=== PATIENT | male | born 1960 | race Caucasian/White ===

== ENCOUNTER → 2017-07-22 | Outpatient (CLI) | payer OTHER ==
[~2017-07-22] MED LIST: AUGMENTIN 875 M1 TAB PO; CIPRODEX 0.3%-7.5 ML OT; CLARITIN10 MG PO; TOBRADEX 0.1%-0.5 ML OPH
[2017-07-22 15:11] LABS: BASO % 0.5 % (0.0-1.0); EOS % 0.4 % (1.0-4.0); HEMATOCRIT 41.9 % (42.0-52.0); HEMOGLOBIN 14.2 g/dl (14.0-18.0); LYMPH # 1.3 10*3/uL (1.3-4.4); LYMPH % 15.5 % (27.0-41.0); MEAN CELL VOLUME 90.3 fl (80.0-94.0); MEAN CORPUSCULAR HGB 30.6 pg (27.0-31.0); MEAN CORPUSCULAR HGB CONC 33.9 g/dl (33.0-37.0); MEAN PLATELET VOLUME 8.5 fl (9.6-12.3); MONO # 0.7 10*3/uL (0.1-1.0); MONO % 8.9 % (3.0-9.0); NEUT # 6.1 10*3/uL (2.3-7.9); NEUT % 74.5 % (47.0-73.0); PLATELET COUNT AUTOMATED 321 10*3/uL (130-400); RED BLOOD COUNT 4.64 10*6/uL (4.50-5.90); RED CELL DISTRI WIDTH 13.9 % (0-14.5); WHITE BLOOD COUNT 8.1 10*3/uL (4.8-10.8)
[2017-07-22 15:42] LABS: VITAMIN D, 25-HYDROXY 11.7 ng/mL (30-100)
[2017-07-22 15:43] LABS: ALBUMIN 3.9 gm/dl (3.1-4.5); ALKALINE PHOSPHATASE 105 U/L (45-117); BUN 11 mg/dl (7-24); CHLORIDE 94 mmol/L (98-107); CREATININE 0.87 mg/dL (0.70-1.30); POTASSIUM 4.1 mmol/L (3.5-5.1); SGOT/AST 39 IU/L (3-35); SGPT/ALT 45 U/L (12-78); SODIUM 131 mmol/L (136-145); TOTAL PROTEIN 8.4 gm/dL (6.4-8.2)
== END | disposition home or self-care (01) ==
LOC: LAB 01:58 → RESCLI 01:58
PROVIDERS: Emergency Medicine
DX: J44.9 Chronic obstructive pulmonary disease, unspecified (principal); R13.11 Dysphagia, oral phase; F17.210 Nicotine dependence, cigarettes, uncomplicated; R49.0 Dysphonia; E55.9 Vitamin D deficiency, unspecified

== ENCOUNTER → 2017-07-29 | Outpatient (CLI) | payer OTHER ==
--- NOTE | ~2017-07-29 | EKG ---
[place], [place] ELECTROCARDIOGRAM REPORT NAME: IRIS MARLOW UNIT #: [id number] ROOM: DOCTOR: HARISH LUZ MD BIRTHDATE: [birth year] DOS: 07/29/2017 TIME: 14:41:54. RATE AND RHYTHM: Sinus tachycardia at 105 beats per minute. IA interval 177 milliseconds, QRS duration 70 milliseconds, corrected QT interval 427 milliseconds, QRS axis 81. IMPRESSION: 1. Sinus tachycardia. 2. Probable left atrial enlargement. HARISH LUZ MD CM:EKGRPT:ELECTROCARDIOGRAM REPORT [id number] HARISH LUZ MD
== END | disposition home or self-care (01) ==
LOC: RESCLI 02:06
DX: J41.1 Mucopurulent chronic bronchitis (principal); J06.9 Acute upper respiratory infection, unspecified; R63.6 Underweight; R13.11 Dysphagia, oral phase; E55.9 Vitamin D deficiency, unspecified; R00.0 Tachycardia, unspecified; Z72.0 Tobacco use; Z71.6 Tobacco abuse counseling

== ENCOUNTER 2018-11-25 10:57 | Emergency (ER) | payer SELFPAY ==
[~2018-11-25] VITALS: Ht 175.2 cm; Wt 45.4 kg
[~2018-11-25 10:57] MED LIST changes: +CLARITIN-D 24 H1 TAB PO; +DULERA 100 MCG8.8 GM PO; +MULTIVITAMINS1 EAC6 PO; +PROTONIX TR40 M1 PO; +PROVENTIL HFA6.7 GM PO
[2018-11-25 11:39] LABS: BASO # 0.1 10*3/uL (0.0-0.1); BASO % 0.4 % (0.0-1.0); EOS # 0.1 10*3/uL (0.0-0.4); EOS % 0.5 % (1.0-4.0); HEMATOCRIT 39.2 % (42.0-52.0); HEMOGLOBIN 13.7 g/dl (14.0-18.0); LYMPH # 1.5 10*3/uL (1.3-4.4); LYMPH % 11.6 % (27.0-41.0); MEAN CELL VOLUME 91.4 fl (80.0-94.0); MEAN CORPUSCULAR HGB 31.9 pg (27.0-31.0); MEAN CORPUSCULAR HGB CONC 34.9 g/dl (33.0-37.0); MEAN PLATELET VOLUME 8.4 fl (9.6-12.3); MONO # 0.7 10*3/uL (0.1-1.0); MONO % 5.1 % (3.0-9.0); NEUT # 10.9 10*3/uL (2.3-7.9); NEUT % 82.1 % (47.0-73.0); PLATELET COUNT AUTOMATED 365 10*3/uL (130-400); RED BLOOD COUNT 4.29 10*6/uL (4.50-5.90); RED CELL DISTRI WIDTH 13.6 % (0-14.5); WHITE BLOOD COUNT 13.2 10*3/uL (4.8-10.8)
[2018-11-25 11:49] LABS: ACT PARTIAL THROMBO TIME 26.5 SECONDS (20.0-32.1); INTERNATIONAL NORM RATIO 0.9 (2.0-3.5)
[2018-11-25 11:52] LABS: ALBUMIN 3.4 gm/dl (3.1-4.5); ALKALINE PHOSPHATASE 147 U/L (45-117); BUN 4 mg/dl (7-24); CHLORIDE 93 mmol/L (98-107); CREATININE 0.63 mg/dL (0.70-1.30); POTASSIUM 3.7 mmol/L (3.5-5.1); SGOT/AST 55 IU/L (3-35); SGPT/ALT 35 U/L (12-78); SODIUM 129 mmol/L (136-145); TOTAL PROTEIN 8.1 gm/dL (6.4-8.2)
== END 2018-11-25 15:30 | disposition short-term general hospital (02) ==
LOC: ED 10:57
PROVIDERS: Emergency Medicine
DX: R22.1 Localized swelling, mass and lump, neck (principal); R06.02 Shortness of breath; R13.10 Dysphagia, unspecified; F17.200 Nicotine dependence, unspecified, uncomplicated; Z79.899 Other long term (current) drug therapy

== ENCOUNTER → 2019-01-06 | Outpatient (CLI) | payer OTHER ==
--- NOTE | ~2019-01-06 | SHMRC ---
[place], [place] THERAPY [facility] NAME: IRIS MARLOW UNIT #: [id number] ROOM: DOCTOR: DANNIE MCMANUS DO Patient Name: IRIS MARLOW. Date: 01/06/2019 Patient Number: [id number] Treating Therapist:Catherine Samuels Patient Date of : 1960 Location: [facility] Patient Reason for Visit RAD/SH Electronic Signature(s) Signed By: Date: Catherine Samuels 01/06/2019 14:55:14 Entered By: Catherine Samuels on 01/06/2019 14:53:53 Arrival Information Patient Name: IRIS MARLOW. Date: 01/06/2019 Patient Number: [id number] Treating Therapist:Catherine Smauels Patient Date of : 1960 Location: [facility] Patient Subjective Initial evaluation completed to generate medical record. Refer to report in [facility] for further information. Electronic Signature(s) Signed By: Date: Catherine Samuels 01/06/2019 14:55:14 Entered By: Catherine Samuels on 01/06/2019 14:53:53 Medical History Patient Name: IRIS MARLOW. Date: 01/06/2019 Patient Number: [id number] Treating Therapist:Catherine Samuels Patient Date of : 1960 Location: [facility] Patient Past Medical History Electronic Signature(s) Signed By: Date: Catherine Samuels 01/06/2019 14:55:14 Entered By: Catherine Samuels on 01/06/2019 14:53:53 Allergy List Patient Name: IRIS MARLOW. Date: 01/06/2019 Patient Number: [id number] Treating Therapist:Catherine Samuels Patient Date of : 1960 Location: [facility] Patient Electronic Signature(s) Signed By: Date: Catherine Samuels 01/06/2019 14:55:14 Entered By: Catherine Samuels on 01/06/2019 14:53:53 Arrival Information Patient Name: IRIS MARLOW. Date: 01/06/2019 Patient Number: [id number] Treating Therapist:Catherine Samuels Patient Date of : 1960 Location: [facility] Patient Subjective Initial evaluation completed to generate medical record. Refer to report in [facility] for further information. Electronic Signature(s) [place], [place] TH[facility]APY [facility] NAME: IRIS MARLOW UNIT #: [id number] ROOM: DOCTOR: DANNIE MCMANUS DO Signed By: Date: Catherine Samuels 01/06/2019 14:55:14 Entered By: Catherine Samuels on 01/06/2019 14:53:53 [facility] Patient Name: IRIS MARLOW. Date: 01/06/2019 Patient Number: [id number] Treating Therapist:Catherine Samuels Patient Date of : 1960 Location: [facility] Patient Visit Start Time 1:00 PM Visit End Time 2:00 PM Visit Duration 60 minutes Procedures CPT Barry Code Intervention Modifier Minutes Units 58893 [id number] MOTION FLUOROSCOPY/SWALLOW 60 1 Total Timed Minutes 0 Total Treatment Minutes 60 Electronic Signature(s) Signed By: Date: Catherine Samuels 01/06/2019 14:55:14 Entered By: Catherine Samuels on 01/06/2019 14:54:47 Chief Complaint Patient Name: IRIS MARLOW. Date: 01/06/2019 Patient Number: [id number] Treating Therapist:Catherine Samuels Patient Date of : 1960 Location: [facility] Patient Reason for Visit RAD/SH Electronic Signature(s) Signed By: Date: Catherine Samuels 01/06/2019 14:55:14 Entered By: Catherine Samuels on 01/06/2019 14:53:53 Medical History Patient Name: ELE IRIS William. Date: 01/06/2019 Patient Number: [id number] Treating Therapist:Catherine Samuels Patient Date of : 1960 Location: [facility] Patient Past Medical History Electronic Signature(s) Signed By: Date: Catherine Samuels 01/06/2019 14:55:14 Entered By: Catherine Samuels on 01/06/2019 14:53:53 Allergy List Patient Name: IRIS MARLOW Date: 01/06/2019 Patient Number: [id number] Treating Therapist:Catherine Samuels Patient Date of : 1960 [facility] Patient Electronic Signature(s) Signed By: Date: [place], [place] TH[facility]APY [facility] NAME: IRIS MARLOW UNIT #: [id number] ROOM: DOCTOR: DANNIE MCMANUS DO, Maryann 01/06/2019 14:55:14 Entered By: Catherine Samuels on 01/06/2019 14:53:53 CM:[facility] 1457 1457 [facility]
--- NOTE | ~2019-01-06 | SLPPOC ---
[place], [place] CORRECTIONAL PROGRAM SPECIALIST PLAN OF CARE NAME: IRIS MARLOW UNIT #: [id number] ROOM: DOCTOR: DANNIE MCMANUS DO Patient Name: IRIS MARLOW Date: 01/06/2019 Patient Date of : 1960 [facility] Start of Care: 01/06/2019 Reason for Treatment: RAD/SH Visits since start of care: 1 Primary Care Physician: YADIEL MIRELES D.O Referring Physician: DANNIE MCMANUS DO Speech-Language Pathology Initial Evaluation Plan of Care Reason for Visit RAD/SH Arrival Information Subjective Initial evaluation completed to generate medical record. [facility] for further information. Medical History Past Medical History Therapist Signature(s) Signed By: Catherine Samuels [facility] License #: [id number] 01/06/2019, 2:55 PM Referring Physician Signature I certify the need for these services furnished under this plan of treatment and while under my care. DANNIE MCMANUS DO Date/Time CM:SLPPOC 1457 1457 [facility]
--- NOTE | ~2019-01-06 | PROC NOTE ---
[place], [place] PROCEDURE NOTE NAME: IRIS MARLOW UNIT #: [id number] ROOM: DOCTOR: BREEZY BUCIO BIRTHDATE: [birth year] DOS: 01/06/2019 MODIFIED BARIUM SWALLOW ORDERING PHYSICIAN: Dr. Gordon. RADIOLOGIST: Dr. Magdaleno. BACKGROUND INFORMATION: The patient is a 58-year-old male who was seen for modified barium swallow. This test was ordered to view the anatomy and physiology of the swallow and determine candidacy for oral feeding. Medical history provided from custodial includes oral and pharyngeal cancer. Further information regarding the cancer and any treatment is not available at this time. History also includes oropharyngeal dysphagia, tracheostomy, DM, ethanol abuse, pneumonia and GERD. The patient was wearing a cuffless trach tube. He reported a need for suctioning 1-2 times daily and stated that he mostly is able to cough out secretions. The patient is n.p.o. and fed by G-tube. He reported that he has not undergone any type of surgery, chemotherapy or radiation, but stated that he thought he may be starting chemotherapy as soon. As previously mentioned, limited information is available regarding this. Patient stated that he underwent two prior modified barium swallow studies in [place] with both studies revealing a recommendation for n.p.o. The patient was alert and able to write to convey his wants and needs. Congested respirations were displayed. Oral peripheral examination revealed edentulous status. Labial and buccal skills were within functional limits in terms of strength, range of motion, and coordination. Lingual range of motion was noted to be poor. Strengths was mild to moderately reduced. The patient's volitional swallow was delayed. Volitional cough was weak. METHODS AND MATERIALS USED FOR THE EXAM: The patient was positioned in the lateral plane and the exam was viewed under fluoroscopy. The patient was presented with a variety of consistencies to assess swallowing skills including applesauce mixed with barium presented in 1/4 and 1/2 teaspoon amounts and thin liquid barium taken in single sip size amount by cup. ORAL PHASE: The patient achieved adequate labial seal around cup and spoon with no anterior loss. Bolus formation was mildly impaired. Oral transit was moderately impaired across consistencies. The patient achieved adequate tongue to palate contact, tongue retraction was adequate. Velar functioning was within normal limits. PHARYNGEAL PHASE: Epiglottic function was adequate as no penetration or aspiration occurred with any consistency given. Following the swallow, coating throughout the pharynx was observed as well as residuals in the piriforms; with a secondary swallow, he was able to clear the residue. ESOPHAGEAL PHASE: This phase of the swallow was not formally assessed during [place], [place] PROCEDURE NOTE NAME: IRIS MARLOW UNIT #: [id number] ROOM: DOCTOR: BREEZY BUCIO BIRTHDATE: [birth year] this exam. IMPRESSIONS AND RECOMMENDATIONS: Based upon assessment results, this 58-year-old patient presents with a moderate oropharyngeal dysphagia characterized by reduced bolus formation and transit, poor laryngeal elevation and coating of barium throughout the pharynx and piriforms, which is slowly cleared with re-swallow. There was no penetration or aspiration occurring with any consistency. It is recommended that the patient begin oral feeding was pleasure foods consisting of pureed items and thin liquids. Recommend the patient eat slowly and in an upright position with small amounts and use of double swallows. Recommend continued therapy at the custodial, focusing on use of strengthening exercises, education and adherence to safe swallow precautions. Results and recommendations were shared with the patient and he verbalized understanding. A written copy was also provided for education of custodial staff. Thank you very much for this referral. Should you have any questions regarding this patient, please contact the speech pathologist at [phone]. BREEZY BUCIO CM:PROCNOTE:PROCEDURE NOTE 1510 [id number] BREEZY BUCIO
--- NOTE | ~2019-01-06 | SLPIE ---
[place], [place] SAFETY PERSON INITIAL EVALUATION NAME: IRIS MARLOW UNIT #: [id number] ROOM: DOCTOR: DANNIE MCMANUS DO Patient Name: IRIS MARLOW Date: 01/06/2019 Patient Date of : 1960 [facility] Start of Care: 01/06/2019 Reason for Treatment: RAD/SH Primary Care Physician: YADIEL MIRELES D.O Referring Physician: DANNIE MCMANUS DO Speech-Language Pathology Initial Evaluation Reason for Visit RAD/ Arrival Information Subjective Initial evaluation completed to generate medical record. Refer to report in [facility] for further information. Medical History Past Medical History [facility] Visit Start Time 1:00 PM Visit End Time 2:00 PM Visit Duration 60 minutes Procedures CPT Melvin Code Intervention Modifier Minutes Units [id number] MOTION FLUOROSCOPY/SWALLOW 60 1 61553 Total Timed Minutes 0 Total Treatment Minutes 60 Therapist Signature(s) Signed By: Catherine Samuels [facility] License #: [id number] 01/06/2019, 2:55 PM CM:[facility] 1457 1457 [facility]
--- NOTE | 2019-01-06 13:48 | NUR ---
SPEECH PATHOLOGY Outpatient modified barium swallow completed as per orders to determine candidacy for oral feeding. Medical history includes oral and pharyngeal CA, oropharyngeal dysphagia, tracheostomy, DM, ETOH abuse, pneumonia, GERD. Patient is NPO and G-tube fed. He reported that he underwent two prior MBS studies in [place]. Patient displayed a moderate oropharyngeal dysphagia characterized by impaired bolus formation, transfer, poor laryngeal elevation, coating throughout pharynx and pyriforms which slowly cleared with reswallow. No penetration or aspiration occurred however his status places him at risk. Recommend patient begin pleasure feeding with puree and thin liquid with upright positioning, small amounts, and double swallows. Continued therapy at [facility] is recommended for exercises, education and adherence to precautions. Results and karma. were shared with patient and written copy was provided for [facility]. Dictated report to follow. Thank you for this referral. BREEZY BUCIO MSCCC-DISTANCE LEARNING COORDINATOR
== END | disposition home or self-care (01) ==
LOC: RAD/SH 12:58
DX: R13.12 Dysphagia, oropharyngeal phase (principal); C09.0 Malignant neoplasm of tonsillar fossa; F10.10 Alcohol abuse, uncomplicated; E11.9 Type 2 diabetes mellitus without complications; J45.909 Unspecified asthma, uncomplicated; E83.52 Hypercalcemia; R91.8 Other nonspecific abnormal finding of lung field

== ENCOUNTER → 2019-02-03 | Outpatient (CLI) | payer OTHER | END | disposition home or self-care (01) | LOC: NM 02-01 10:00 | DX: C10.8 Malignant neoplasm of overlapping sites of oropharynx (principal) ==

== ENCOUNTER → 2019-05-03 | Outpatient (CLI) | payer OTHER ==
--- NOTE | 2019-05-03 15:25 | NUR ---
SPEECH PATHOLOGY Outpatient MBS completed as per orders to determine safety with present diet. Medical history includes oropharyngeal cancer, tracheostomy, dysphagia, pneumonia, GERD, ETOH abuse. Patient has a g-tube for feeding but also receives puree and thin liquid as pleasure food. He reported that recently he has been coughing consistently when eating. Patient has been undergoing chemotherapy. He wears a cuffless trach. He cannot communicate verbally and is able to write to convey wants and needs. He was alert and cooperative, able to follow all commands. Oral exam revealed edentulous status. Limited jaw movement was displayed when attempting to open his mouth. Buccal and lingual ROM were poor. Labial skills were WFL in terms of strength, ROM and coordination. He was not able to volitionally swallow and volitional cough was weak and unproductive. He was assessed with puree and nectar liquid with results revealing severe oropharyngeal dysphagia characterized by poor bolus formation and transit, impaired tongue to posterior pharyngeal wall contact resulting in pooling in the valleculae, significant delay of swallow with bolus movement primarily due to gravity and silent aspiration with thick liquid due to reduced laryngeal elevation and epiglottic function. Recommend NPO and G-tube as primary means of nutrition. Recommend follow up therapy focusing on exercises to improve oral ROM and pharyngeal strength to work toward improving ability to tolerate oral feeding. Results and karma. were shared with patient and a written copy was provided for education of intermediate staff. Dictated report to follow. Thank you for this referral. BREEZY BUCIO MSCCC-MARKETING WRITER
== END | disposition home or self-care (01) ==
LOC: RAD/SH 13:24
DX: R13.19 Other dysphagia (principal)

== ENCOUNTER 2019-07-31 03:43 | Emergency (ER) | payer OTHER ==
[~2019-07-31] VITALS: Wt 49.3 kg
[2019-07-31 04:47] LABS: BASO % 0.1 % (0.0-1.0); EOS % 0.2 % (1.0-4.0); HEMATOCRIT 21.9 % (42.0-52.0); LYMPH # 0.8 10*3/uL (1.3-4.4); MEAN CELL VOLUME 104.8 fl (80.0-94.0); MEAN CORPUSCULAR HGB 34.4 pg (27.0-31.0); MEAN CORPUSCULAR HGB CONC 32.9 g/dl (33.0-37.0); MEAN PLATELET VOLUME 10.2 fl (9.6-12.3); MONO # 0.7 10*3/uL (0.1-1.0); MONO % 8.3 % (3.0-9.0); NEUT # 6.8 10*3/uL (2.3-7.9); NEUT % 80.9 % (47.0-73.0); PLATELET COUNT AUTOMATED 142 10*3/uL (130-400); RED BLOOD COUNT 2.09 10*6/uL (4.50-5.90); RED CELL DISTRI WIDTH 18.2 % (0-14.5); WHITE BLOOD COUNT 8.4 10*3/uL (4.8-10.8)
[2019-07-31 05:04] LABS: ACT PARTIAL THROMBO TIME 28.5 SECONDS (20.0-32.1); INTERNATIONAL NORM RATIO 1.1 (2.0-3.5)
[2019-07-31 07:05] LABS: HEMATOCRIT 20.4 % (42.0-52.0)
== END 2019-07-31 10:02 | disposition short-term general hospital (02) ==
LOC: ED 03:43
PROVIDERS: Emergency Medicine Emergency Medical Services
DX: C14.0 Malignant neoplasm of pharynx, unspecified (principal); R22.1 Localized swelling, mass and lump, neck; R04.0 Epistaxis; J44.9 Chronic obstructive pulmonary disease, unspecified; K21.9 Gastro-esophageal reflux disease without esophagitis; E11.9 Type 2 diabetes mellitus without complications; Z95.828 Presence of other vascular implants and grafts; Z79.899 Other long term (current) drug therapy; Z85.819 Personal history of malignant neoplasm of unspecified site of lip, oral cavity, and pharynx; Z85.118 Personal history of other malignant neoplasm of bronchus and lung; Z87.891 Personal history of nicotine dependence

== ENCOUNTER 2019-08-19 17:36 | Emergency (ER) | payer OTHER ==
[~2019-08-19] VITALS: Ht 175.2 cm; Wt 45.4 kg
[2019-08-19 18:04] LABS: BASO % 0.3 % (0.0-1.0); EOS # 0.1 10*3/uL (0.0-0.4); EOS % 0.7 % (1.0-4.0); HEMATOCRIT 30.1 % (42.0-52.0); LYMPH # 0.8 10*3/uL (1.3-4.4); MEAN CELL VOLUME 99.3 fl (80.0-94.0); MEAN CORPUSCULAR HGB 31.4 pg (27.0-31.0); MEAN CORPUSCULAR HGB CONC 31.6 g/dl (33.0-37.0); MEAN PLATELET VOLUME 8.8 fl (9.6-12.3); MONO # 0.8 10*3/uL (0.1-1.0); MONO % 9.1 % (3.0-9.0); NEUT # 7.4 10*3/uL (2.3-7.9); NEUT % 80.6 % (47.0-73.0); PLATELET COUNT AUTOMATED 334 10*3/uL (130-400); RED BLOOD COUNT 3.03 10*6/uL (4.50-5.90); RED CELL DISTRI WIDTH 16.8 % (0-14.5); WHITE BLOOD COUNT 9.1 10*3/uL (4.8-10.8)
[2019-08-19 18:17] LABS: ACT PARTIAL THROMBO TIME 29.3 SECONDS (20.0-32.1); INTERNATIONAL NORM RATIO 1.1 (2.0-3.5)
[2019-08-19 18:19] LABS: ALBUMIN 2.8 gm/dl (3.1-4.5); ALKALINE PHOSPHATASE 104 U/L (45-117); BUN 13 mg/dl (7-24); CHLORIDE 97 mmol/L (98-107); CREATININE 0.63 mg/dL (0.70-1.30); LIPASE 94 U/L (73-393); POTASSIUM 3.7 mmol/L (3.5-5.1); SGOT/AST 18 IU/L (3-35); SGPT/ALT 22 U/L (12-78); SODIUM 134 mmol/L (136-145); TOTAL PROTEIN 8.6 gm/dL (6.4-8.2)
== END 2019-08-19 21:40 ==
LOC: ED 17:36
PROVIDERS: Nurse Practitioner Family
DX: L98.8 Other specified disorders of the skin and subcutaneous tissue (principal); J44.9 Chronic obstructive pulmonary disease, unspecified; J45.909 Unspecified asthma, uncomplicated; K21.9 Gastro-esophageal reflux disease without esophagitis; E11.9 Type 2 diabetes mellitus without complications; Z79.899 Other long term (current) drug therapy

== ENCOUNTER → 2019-09-30 | Outpatient (CLI) | payer OTHER ==
--- NOTE | 2019-09-30 10:46 | NUR ---
SPEECH PATHOLOGY Outpatient MBS completed as per orders to determine cadidacy for return to oral feeding. Medical hisotry includes oral and pharyngeal CA, oropharyngeal dysphagia, tracheostomy, DM, ETOH abuse, pneumonia, GERD. Patient is NPO and G-tube fed. He has undergone two previous MBS studies at this facility. He wears a cuffless trach. He cannot communicate verbally but can write to express his wants and needs and can mouth some words and indicate y/n. He was alert and cooperative and able to follow all verbal commands. Oral exam revealed edentulous status. Limited ability to open his mouth. Buccal and lingual ROM were poor, and labial skills were WFL. He attempted volitional swallow, however, he was not able to do so. Volitional cough weak and unproductive. He was assessed with pureed applesauce mixed with barium revealing severe oropharyngeal dysphagia characterized by poor bolus formation and transit, no tongue to posterior pharyngeal wall contact, and pooling in valleculae and pyriform sinuses. Bolus transit mostly due to gravity. With cues to swallow multiple times he was able to swallow two small piecemeal amounts of puree which had pooled in pyriforms. Bolus remained unformed as material pooled in pharynx with little to no deglutition into esophagus. No aspiration noted during this trial. Evaluation discontinued after one trial of puree due to concerns of safety with liquids as there was very little muscular movement during attempted swallows, including no laryngeal elevation, no tongue to pharyngeal wall contact, and no pharyngeal contraction visible. Recommending NPO status and G-tube as primary means of nutrition. Patient may only have small sips of water by mouth in conjunction with intensive oral hygiene regimen to reduce risk of aspiration pneumonia or other acute respiratory infection. Recommend follow up therapy at [place] focusing on exercises and Vital Stim if possible to work toward ability to return to pureed and liquid pleasure feeds. Results and karma. shated with patient and given written copy for care home staff. Dictated report to follow. Thank you for this referral. Leon Cabrera MA [facility]-NAILING MACHINE OPERATOR
== END | disposition home or self-care (01) ==
LOC: RAD/SH 09-23 08:00
DX: R13.12 Dysphagia, oropharyngeal phase (principal)

== ENCOUNTER 2020-02-07 08:56 | Inpatient (IN) | payer OTHER ==
[2020-02-07] VITALS (16 sets, daily range): BP systolic 80–119; BP diastolic 37–67
[~2020-02-07] VITALS: Ht 175.3 cm; Wt 52.2 kg
[2020-02-07 09:33] LABS: BASO % 0.2 % (0.0-1.0); EOS # 0.2 10*3/uL (0.0-0.4); EOS % 1.3 % (1.0-4.0); HEMATOCRIT 35.4 % (42.0-52.0); LYMPH # 0.6 10*3/uL (1.3-4.4); LYMPH % 4.9 % (27.0-41.0); MEAN CORPUSCULAR HGB 26.8 pg (27.0-31.0); MEAN CORPUSCULAR HGB CONC 30.8 g/dl (33.0-37.0); MEAN PLATELET VOLUME 8.9 fl (9.6-12.3); MONO % 8.1 % (3.0-9.0); NEUT # 10.4 10*3/uL (2.3-7.9); NEUT % 85.2 % (47.0-73.0); PLATELET COUNT AUTOMATED 457 10*3/uL (130-400); RED BLOOD COUNT 4.07 10*6/uL (4.50-5.90); RED CELL DISTRI WIDTH 15.9 % (0-14.5); WHITE BLOOD COUNT 12.2 10*3/uL (4.8-10.8)
[2020-02-07 09:48] LABS: ACT PARTIAL THROMBO TIME 28.8 SECONDS (20.0-32.1); INTERNATIONAL NORM RATIO 1.1 (2.0-3.5)
[2020-02-07 09:49] LABS: ALBUMIN 2.9 gm/dl (3.1-4.5); ALKALINE PHOSPHATASE 168 U/L (45-117); BUN 16 mg/dl (7-24); CHLORIDE 99 mmol/L (98-107); LIPASE 52 U/L (73-393); POTASSIUM 3.8 mmol/L (3.5-5.1); SGOT/AST 37 IU/L (3-35); SGPT/ALT 32 U/L (12-78); SODIUM 134 mmol/L (136-145); TOTAL PROTEIN 9.1 gm/dL (6.4-8.2)
[2020-02-07 10:00] LABS: TROPONIN I < 0.015 ng/ml (<0.045)
--- NOTE | 2020-02-07 15:18 | NUR ---
PT ALERT, REPORTS HIS BLOOD PRESSURE RUNS LOW. [facility] [employer] [employer] AT BEDSIDE.
--- NOTE | 2020-02-07 17:52 | NUR ---
ESTABLISHED 2 PERIPHERAL IV'S ON PT. 20G LEFT FOREARM AND 20G RIGHT AC.
[2020-02-07] MEDS ORDERED: [UNRECOGNIZED DRUG - OTHER] (18:55)
[2020-02-07] MEDS ORDERED: ENSURE ACTIVE414 ML GT (18:56)
[2020-02-07] MEDS ORDERED: ATIVAN0.5 MG GT (18:58)
[2020-02-07] MEDS ORDERED: SENNA8.6 MG GT (18:59)
[2020-02-07] MEDS ORDERED: GOOD NEIGHBOR M25 M1 GT (19:02)
--- NOTE | 2020-02-07 19:11 | NUR ---
REPORT TO RN FOR ROOM EXAM ROOM 8
--- NOTE | 2020-02-07 19:59 | NUR ---
PATIENT TRANSPORTED TO ICU WITH RASHAD CHRISTIANSON LEVOPHED INFUSING ON DEPARTURE.
--- NOTE | 2020-02-07 20:24 | NUR ---
1930 Pt arrived from ER. Pt skin assessed with Silvia MORALES. Red open wound noted to chin and neck (trach site), red wound noted to left upper chest. Blanchable redness noted to sacrum, bilateral heels soft, boggy with blanchable redness. All other pressure points intact, heels offloaded with pillows. Left port noted. Left hand peripheral IV dressing clean, dry and intact. Right AC peripheral IV with levophed infusing at 4 mcg/min. Call light and bedside table within reach.
--- NOTE | 2020-02-07 20:44 | NUR ---
I spoke to Dr. Rodriguez regarding the use of the left femoral CVC, she stated it was okay to use.
--- NOTE | 2020-02-07 22:10 | NUR ---
7288 Dr. Pratt made aware pt requesting MD navjot stated ok to use PEG.
[2020-02-08] VITALS (22 sets, daily range): BP systolic 90–116; BP diastolic 44–60
[2020-02-08 06:27] LABS: ALBUMIN 2.3 gm/dl (3.1-4.5); BUN 10 mg/dl (7-24); CHLORIDE 107 mmol/L (98-107); CREATININE 0.51 mg/dL (0.70-1.30); POTASSIUM 3.4 mmol/L (3.5-5.1); SGOT/AST 29 IU/L (3-35); SGPT/ALT 22 U/L (12-78); SODIUM 139 mmol/L (136-145)
[2020-02-08 06:29] LABS: ALKALINE PHOSPHATASE 132 U/L (45-117); TOTAL PROTEIN 7.4 gm/dL (6.4-8.2)
[2020-02-08 06:35] LABS: BASO % 0.3 % (0.0-1.0); MEAN PLATELET VOLUME 9.4 fl (9.6-12.3)
[2020-02-08 06:36] LABS: EOS # 0.2 10*3/uL (0.0-0.4); EOS % 1.6 % (1.0-4.0); HEMATOCRIT 32.2 % (42.0-52.0); LYMPH # 0.7 10*3/uL (1.3-4.4); LYMPH % 5.7 % (27.0-41.0); MEAN CELL VOLUME 88.7 fl (80.0-94.0); MEAN CORPUSCULAR HGB 26.7 pg (27.0-31.0); MEAN CORPUSCULAR HGB CONC 30.1 g/dl (33.0-37.0); MONO # 1.1 10*3/uL (0.1-1.0); MONO % 9.2 % (3.0-9.0); NEUT # 10.1 10*3/uL (2.3-7.9); NEUT % 82.9 % (47.0-73.0); PLATELET COUNT AUTOMATED 475 10*3/uL (130-400); RED BLOOD COUNT 3.63 10*6/uL (4.50-5.90); RED CELL DISTRI WIDTH 15.8 % (0-14.5); WHITE BLOOD COUNT 12.2 10*3/uL (4.8-10.8)
[2020-02-08] MEDS ORDERED: ECPIRIN325 MG PO (11:58)
--- NOTE | 2020-02-08 12:05 | NUR ---
aWAKE AND ALERT THIS am. Dr. Salguero in to evaulate. . Covid swab obtained and hand carried to lab
--- NOTE | 2020-02-08 20:42 | NUR ---
PT. RESTING IN BED WATCHING TV. TYLENOL GIVEN AT APPROX 1945 FOR COMPLAINTS OF HEADACHE, PT. STATES MILDLY EFFECTIVE. IVF CONTINUE ORDERED, SITE ASYMPT. HEP LOCKS IN LH AND RAN ASYMPT. LEFT FEMORAL MLC INTACT. ABDOMEN SOFT, NONDISTENDED AND NORMO, PT. EMACIATED, 2 SOMMER TUBE FEEDING VIA PEG ORDERED, SITE CONFIRMED WITH AIR BOLUS AND NO RESIDUAL WAS NOTED. PULSE OX 93% ON 30% TRACH MASK. CHARLES HERNDON RN
[2020-02-09] VITALS: BP 95/54
[2020-02-09 04:00] VITALS: BP 91/45
[2020-02-09 08:00] VITALS: BP 92/49
[2020-02-09 08:13] LABS: BASO % 0.3 % (0.0-1.0); EOS # 0.4 10*3/uL (0.0-0.4); EOS % 2.8 % (1.0-4.0); HEMATOCRIT 31.2 % (42.0-52.0); LYMPH # 0.7 10*3/uL (1.3-4.4); LYMPH % 5.5 % (27.0-41.0); MEAN CELL VOLUME 87.9 fl (80.0-94.0); MEAN CORPUSCULAR HGB 26.5 pg (27.0-31.0); MEAN CORPUSCULAR HGB CONC 30.1 g/dl (33.0-37.0); MEAN PLATELET VOLUME 8.6 fl (9.6-12.3); MONO % 7.9 % (3.0-9.0); NEUT # 10.5 10*3/uL (2.3-7.9); NEUT % 83.1 % (47.0-73.0); PLATELET COUNT AUTOMATED 411 10*3/uL (130-400); RED BLOOD COUNT 3.55 10*6/uL (4.50-5.90); RED CELL DISTRI WIDTH 15.9 % (0-14.5); WHITE BLOOD COUNT 12.6 10*3/uL (4.8-10.8)
[2020-02-09 08:32] LABS: BUN 8 mg/dl (7-24); CHLORIDE 104 mmol/L (98-107); POTASSIUM 3.8 mmol/L (3.5-5.1); SODIUM 135 mmol/L (136-145)
[2020-02-09 08:34] LABS: CREATININE 0.52 mg/dL (0.70-1.30)
--- NOTE | 2020-02-09 08:36 | NUR ---
pts trach care done. minimal cleaning around trach due to bleeding. inner cannula changed and mouth care given.
--- NOTE | 2020-02-09 08:42 | NUR ---
PATIENT MEDICATED WITH TYLENOL FOR COMPLAINTS OF PAIN TO HIS HEAD RELATED TO HEADACHE. PEG TUBE WAS CLOGGED BUT EVENTUALLY WAS SUCCESSFULLY UNCLOGGED. TUBE FEED RESTARTED AFTER INSTILLING TYLENOL. RN WILL CONTINUE TO MONITOR
--- NOTE | 2020-02-09 09:00 | NUR ---
BOTH DR DYSON AND DR JASSO IN ICU AND MADE AWARE THAT PATIENT HAS RECIEVED CT WITH CONTRAST LAST EVENING SO HE IS UNABLE TO HAVE THE CT HEAD WITH CONTRAST AT THIS TIME.
--- NOTE | 2020-02-09 09:39 | NUR ---
Patient comes in from [facility], [facility]. Updated clinicals faxed to facility for review. patient is ok to return when medically stable for discharge.
[2020-02-09 12:00] VITALS: BP 102/37
[2020-02-09 16:00] VITALS: BP 101/53
[2020-02-09 20:00] VITALS: BP 98/57
--- NOTE | 2020-02-09 22:00 | NUR ---
DISCHARGE PICTURES TAKEN
--- NOTE | 2020-02-09 23:12 | NUR ---
TRANSFERRED TO [facility]
== END 2020-02-09 23:12 | disposition short-term general hospital (02) | DRG 720 ==
LOC: ED 08:56 → EDHOLD 12:47 → ICCU 12:47
PROVIDERS: Emergency Medicine; Internal Medicine; ADMIT Internal Medicine; ATTEND Internal Medicine
PROC: 06HY33Z Insertion of Infusion Device into Lower Vein, Percutaneous Approach (ICD-10-PCS; principal; 2020-02-07)
PROC: B54CZZA Ultrasonography of Left Lower Extremity Veins, Guidance (ICD-10-PCS; 2020-02-07)
DX: A41.9 Sepsis, unspecified organism (principal); L03.221 Cellulitis of neck; D64.9 Anemia, unspecified; E87.1 Hypo-osmolality and hyponatremia; E83.52 Hypercalcemia; R65.21 Severe sepsis with septic shock; E83.39 Other disorders of phosphorus metabolism; E87.6 Hypokalemia; Y83.8 Other surgical procedures as the cause of abnormal reaction of the patient, or of later complication, without mention of misadventure at the time of the procedure; E43 Unspecified severe protein-calorie malnutrition; D47.3 Essential (hemorrhagic) thrombocythemia; J95.02 Infection of tracheostomy stoma; L03.313 Cellulitis of chest wall; C79.31 Secondary malignant neoplasm of brain; B97.7 Papillomavirus as the cause of diseases classified elsewhere; Z20.828 Contact with and (suspected) exposure to other viral communicable diseases; Y84.8 Other medical procedures as the cause of abnormal reaction of the patient, or of later complication, without mention of misadventure at the time of the procedure; C79.89 Secondary malignant neoplasm of other specified sites; Z87.891 Personal history of nicotine dependence; Z80.1 Family history of malignant neoplasm of trachea, bronchus and lung; Z79.899 Other long term (current) drug therapy; Y92.89 Other specified places as the place of occurrence of the external cause; T80.21 Infection due to central venous catheter; Z85.819 Personal history of malignant neoplasm of unspecified site of lip, oral cavity, and pharynx; Z80.8 Family history of malignant neoplasm of other organs or systems; Z68.1 Body mass index [BMI] 19.9 or less, adult